=== PATIENT | female | born 1935 | race Caucasian/White ===

== ENCOUNTER 2016-07-23 15:38 | Emergency (ER) | payer OTHER, MEDICARE ==
[~2016-07-23] VITALS: Ht 142.2 cm; Wt 60.3 kg
[2016-07-23 15:44] VITALS: BP 165/84
--- NOTE | 2016-07-23 16:02 | ED SKIN/ALLERGY COMPLAINT ---
History of Present Illness General Chief Complaint: General Adult Stated Complaint: RECEIVED FLU ? INFECTION Source: patient, old records Exam Limitations: no limitations Vital Signs & Intake/Output Vital Signs & Intake/Output Vital Signs Date Time Temp Pulse Resp B/P Pulse O2 O2 Flow FiO2 Ox Delivery Rate 07/23 1544 97.4 85 16 165/84 97 Room Air Allergies Coded Allergies: NO KNOWN ALLERGIES (06/07/12) Reconcile Medications Amlodipine Besylate 5 MG TABLET 5 MG PO DAILY PER PT (Reported) Cephalexin (Keflex) 500 MG CAPSULE 1 CAP PO TID cellulitis Hydrochlorothiazide 12.5 MG CAPSULE 1 CAP PO DAILY BLOOD PRESSURE (Reported) Metoprolol Tartrate 25 MG TABLET 1 TAB PO 8AM HIGH BLOOD PRESSURE (Reported) Triage Note: PT STATES SHE RECEIVED THE FLU SHOT MONDAY IN HER RIGHT ARM AND NOW THE RIGHT ARM IS SWOLLEN AND RED. Triage Nurses Notes Reviewed? yes Onset: Abrupt Duration: day(s): (2), constant Timing: recent history Severity: moderate Severity Numbers: 4 Location: extremities Possible Factors: s/p flu shot Associated Symptoms: denies HPI: 81-year-old female with history of high blood pressure presents complaining of redness warmth and pain to her right shoulder after she received a flu shot to the right upper arm 2 days ago. The patient states that she had a similar reaction several months ago when she received the pneumonia shot require antibiotics. She states the symptoms resolved after being on antibiotics for a few days. She denies any fevers chills. She denies any difficulty with movement of the arm chest pain shortness of breath nausea vomiting or diarrhea (YADIRA GOMEZ) Past History Travel History Traveled to [place] past 21 day No Medical History Any Pertinent Medical History? see below for history Cardiovascular: hypertension Pneumonia Vaccine: 06/08/08 Influenza Vaccine: 06/06/12 Surgical History Surgical History: non-contributory Psychosocial History Who do you live with Son What is your primary language Lithuanian Tobacco Use: Quit >30 days ago ETOH Use: occasional use Illicit Drug Use: denies illicit drug use Family History Hx Contributory? No (YADIRA GOMEZ) Review of Systems Review of Systems Constitutional: Reports: see HPI. All Other Systems: Reviewed and Negative Comments Review of systems: See HPI, All other systems negative. Constitutional, no chills no fever, no malaise HEENT: No visual changes no sore throat no congestion, no ear pain Cardiovascular: No chest pain , no palpitation Skin, see hpi Respiratory: No dyspnea no cough no sputum GI: No nausea no vomiting, no diarrhea, : No dysuria Muscle skeletal: No joint pain, no joint swelling, no back pain, no neck pain, Neurologic: No numbness, no headache Psych: No stress Heme/endocrine: No bruising no bleeding Immunology: No lymphadenopathy (YADIRA GOMEZ) Physical Exam Physical Exam General Appearance: well developed/nourished, no apparent distress, alert, awake Comments: Well-developed well-nourished patient in no apparent distress. HEENT: Atraumatic, extraocular motion intact Neck: Supple, FROM, Back: FRO Cardiovascular: Regular rate and rhythms no murmurs rubs or gallops, Respiratory: Chest nontender.There were no bony deformities, no asymmetry. No respiratory distress. Patient speaking in full complete sentences. Breath sounds clear to auscultation bilaterally: NO W/R/R Extremities: full range of motion, right shoulder is atraumatic nontender no swelling Neuro: Alert and oriented x3 Skin: There is a localized area 5 x 7 of erythema noted to the lateral right shoulder, positive warmth and minimal tenderness no induration no fluctuance;No appreciable rash on exposed skin Psych: Mood affect normal, normal memory normal judgment. (YADIRA GOMEZ) Progress Differential Diagnosis: abscess/cellulitis, allergic reaction, contact dermatitis, drug reaction, erythema multiforme Plan of Care: exam is consistent with a localized cellulitis. Prescription for Keflex to the patient's pharmacy I discussed with her close follow-up for wound care and repeat wound check in 48-72 hours with her primary care physician, advised return anytime sooner if symptoms worsen she develops fever chills or any other concerns. I answered all of her questions they feel comfortable this plan (YADIRA GOMEZ) Departure Departure Time of Disposition: 1606 Disposition: HOME OR SELF CARE Condition: Stable Clinical Impression Primary Impression: Cellulitis Referrals: SEBASTIÁN LOFTON,ANTONIA Cain (PCP/Family) Additional Instructions: Keflex as directed. Follow up with your primary care physician for wound check early next week or return to the emergency room if he cannot be seen. Return anytime sooner if you develop worsening of her rash, developed fever chills or have any other concerns This prescription was sent to [facility]. Departure Forms: Customer Survey General Discharge Information Prescriptions: Current Visit Scripts Cephalexin (Keflex) 1 CAP PO TID #21 CAP (YADIRA GOMEZ) PA/STEAM CRANE OPERATOR Co-Sign Statement Statement: ED Attending supervision documentation- [X] I saw and evaluated the patient. I have also reviewed all the pertinent lab results and diagnostic results. I agree with the findings and the plan of care as documented in the PA's/STEAM CRANE OPERATOR's documentation. [X] I have reviewed the ED Record and agree with the PA's/STEAM CRANE OPERATOR's documentation. [] Additions or exceptions (if any) to the PAs/STEAM CRANE OPERATOR's note and plan are summarized below: [] (YAEL LOFTON,MADHAVI Velázquez)
[2016-07-23] MEDS ORDERED: METOPROLOL TART25 M1 PO (16:07)
[2016-07-23] MEDS ORDERED: AMLODIPINE BESYL5 M1 PO (16:08)
[2016-07-23] MEDS ORDERED: HYDROCHLOROTH12.5 M3 PO (16:08)
[2016-07-23] MEDS ORDERED: KEFLEX500 M1 PO (16:10)
== END 2016-07-23 16:33 ==
LOC: ERH 15:38
DX: L03.113 Cellulitis of right upper limb (principal)